=== PATIENT | female | born 1995 | race Caucasian/White ===

== ENCOUNTER 2022-04-26 09:43 | Emergency (ER) | payer OTHER ==
[~2022-04-26] VITALS: Ht 172.7 cm; Wt 169.1 kg
[2022-04-26] MEDS ORDERED: RT ALBUTEROL CC18 GM IH (10:00)
[2022-04-26] MEDS ORDERED: METFORMIN HYD1000 MG PO (10:00)
[2022-04-26] MEDS ORDERED: PROAIR HFA0.09 MG/AC IH (10:00)
[2022-04-26] MEDS ORDERED: DESYREL50 MG PO (10:01)
[2022-04-26] MEDS ORDERED: IPRATROPIUM BROM3 M1 IH (13:10)
[2022-04-26] MEDS ORDERED: PREDNISONE20 MG PO (13:10)
[2022-04-26 13:48] VITALS: BP 137/71
== END 2022-04-26 13:25 | disposition home or self-care (01) ==
LOC: ED 09:43
DX: J45.901 Unspecified asthma with (acute) exacerbation (principal); J06.9 Acute upper respiratory infection, unspecified; Z20.822 Contact with and (suspected) exposure to COVID-19
CPT/HCPCS: J7512